=== PATIENT | male | born 2000 | race Two or more races ===

== ENCOUNTER 2021-02-15 17:34 | Emergency (ER) | payer SELFPAY ==
[~2021-02-15] VITALS: Ht 175.3 cm; Wt 99.8 kg
[2021-02-15 20:05] VITALS: BP 130/76
[2021-02-15] MEDS ORDERED: IBUPROFEN 800 MG TAB PO ONE (21:00)
== END 2021-02-15 22:22 | disposition home or self-care (01) ==
LOC: ER 17:34
DX: S92.352A Displaced fracture of fifth metatarsal bone, left foot, initial encounter for closed fracture (principal); W22.8XXA Striking against or struck by other objects, initial encounter; Y93.39 Activity, other involving climbing, rappelling and jumping off; Y92.89 Other specified places as the place of occurrence of the external cause; Y99.8 Other external cause status
CPT/HCPCS: 29515; 73610; 73630